=== PATIENT | male | born 1995 | race Hispanic/Latino ===

== ENCOUNTER 2022-10-16 10:17 | Emergency (ER) | payer OTHER, SELFPAY ==
--- NOTE | ~2022-10-16 | XR_ITS ---
XR finger 1st LT min 2V DATE: 10/16/2022 11:11 INDICATION: Laceration with saw TECHNIQUE: 4 views COMPARISON: None FINDINGS: There is some bandage material around the first digit. There is a comminuted fracture of the distal phalanx including transverse fracture through the distal shaft in addition to fracture of the tuft. There is up to approximately 5 mm maximal separation of the major proximal and distal fracture fragme nts. There is a linear nondisplaced intra-articular fracture through the lateral base of the proximal phal anx IMPRESSION: Fractures of proximal and distal phalanges of first digit Reviewed, dictated and finalized at location [facility]. [facility]
[2022-10-16 10:22] VITALS: BP 151/106; PULSE 68; RESP 18; TEMP 36.9; O2SAT 100
[2022-10-16] MEDS: TETANUS,DIPHTHERIA,AC PERTUSSIS ADULT (0.5 ML) BOOSTRIX IM (11:18)
--- NOTE | 2022-10-16 12:21 | PC.NURSE ---
patient requesting pain medication. provider made aware
[2022-10-16] MEDS: HYDROcodone/acetaminophen (*CRX) 5-325 MG TABLET 1 TAB PO (13:10)
--- NOTE | 2022-10-16 13:14 | ED.WOUNDLAC ---
HPI - Wound/Laceration General Chief Complaint: Wound/Laceration Stated Complaint: circular saw vs thumb Time Seen by Provider: 10/16/22 10:59 Source: patient Mode of arrival: ambulatory Limitations: no limitations History of Present Illness HPI narrative: Patient is a 27-year-old male who presents the ED with report of a laceration to his left thumb. Patient reports he was using an electric circular saw at work today when he sustained a laceration to his left first thumb, just below the nailbed, wrapping around to his medial finger pad. No other injuries. Sensation intact. Tetanus status unknown. Related Data Allergies Allergy/AdvReac Type Severity Reaction Status Date / Time No Known Allergies Allergy Verified 10/16/22 11:17 Review of Systems Review of Systems: CONSTITUTIONAL: Denies fever, chills, or sweats. SKIN: Reports laceration to left thumb. MUSCULOSKELETAL: Reports pain to left thumb. NEUROLOGIC: Denies tingling, numbness, or weakness. All systems reviewed & are unremarkable except as noted in HPI and below PMFSH Past Medical History Medical History (Updated 10/16/22 @ 18:34 by Shruti Tsai PA-C) No pertinent past medical history Surgical History Surgical History (Updated 10/16/22 @ 13:18 by Shruti Tsai PA-C) No pertinent past surgical history Social History Social History (Updated 10/16/22 @ 13:18 by Shruti Tsai PA-C) Smoking status: Never smoker Exam Narrative: GENERAL: Well appearing, well-nourished, non-toxic, in mild acute distress. HEAD: Normocephalic, atraumatic. NECK: Supple. No adenopathy, no masses. RESPIRATORY: Airway patent, respirations nonlabored. Clear to auscultation bilaterally, no rales, rhonchi, wheezing. CARDIOVASCULAR: Regular rate and rhythm without murmurs, rubs, or gallops. Radial pulses 2+ and equal bilaterally. MUSCULOSKELETAL: Moves all extremities. Strength/ROM intact. SKIN: Warm, dry, normal color. No rashes. Significant deformity to distal L thumb. Laceration beginning below nailbed of left thumb, disrupting entire nailbed, avulsing distal finger, extending around to medial finger pad. Laceration gaping with jagged edges. NEURO: A&O X3. Speech clear. Cranial nerves II-XII grossly intact. Steady gait. No ataxic movements. PSYCHIATRIC: Appropriate mood and affect. Normal interaction. Course Consultations Consultation #1: Discussed case with Ortho/hand specialty at [facility]. Accepted patient for transfer. EDP Dr. Urrutia accepted patient to ED. Date: 10/16/22 Time: 14:12 Vital Signs Vital signs: Vital Signs Temperature 98.4 F 10/16/22 10:22 Pulse Rate 68 10/16/22 10:22 Respiratory Rate 18 10/16/22 10:22 Blood Pressure 151/106 H 10/16/22 10:22 Pulse Oximetry 100 10/16/22 10:22 Oxygen Delivery Room Air 10/16/22 10:22 Temperature 98.4 F 10/16/22 10:22 Pulse Rate 78 10/16/22 16:30 Respiratory Rate 18 10/16/22 16:30 Blood Pressure 152/68 H 10/16/22 16:30 Pulse Oximetry 99 10/16/22 16:30 Oxygen Delivery Room Air 10/16/22 10:22 MDM - Wound/Laceration MDM Narrative Medical decision making narrative: Patient presented to ED with report of laceration to left thumb from circular saw. Obvious gross deformity. Persistent bleeding. Disruption of entire nail bed with avulsion deformity distally. X-ray obtained showing fracture of proximal and distal phalanges, comminuted fractures of distal phalanges and tuft. Digital nerve block performed to examine patient. Good perfusion, verified by pulse oximeter to left thumb. Due to severity of laceration, deformity, several fractures, open fx, feel patient requires hand surgery. Discussed case with hand/ortho @ [facility], accepted patient for transfer. ED-ED transfer. Patient will be going by private vehicle with family member. Advised to drive directly to [facility] ED. Patient given dose of Ancef in the ED. Tetanus status updated. Given CD film for t
[2022-10-16] MEDS: ceFAZolin SODIUM 1 GM VIAL IM (13:24)
[2022-10-16 16:30] VITALS: BP 152/68; PULSE 78; RESP 18; O2SAT 99
== END 2022-10-16 16:45 | disposition short-term general hospital (02) ==
PROVIDERS: Emergency Provider Emergency Medicine
DX: S62.522B Displaced fracture of distal phalanx of left thumb, initial encounter for open fracture (principal); S62.512B Displaced fracture of proximal phalanx of left thumb, initial encounter for open fracture; Z23 Encounter for immunization; W31.2XXA Contact with powered woodworking and forming machines, initial encounter
CPT/HCPCS: 29130; 73140; 90471; 90715; 96372; 99284; A9270; J0690